=== PATIENT | female | born 1975 | race Caucasian/White ===

== ENCOUNTER → 2023-08-16 14:30 | Outpatient (REF) | payer OTHER, SELFPAY | LOC: HWWDC 14:30 | PROVIDERS: ATTENDING PHYSICIAN Obstetrics & Gynecology Gynecology | DX: Z12.31 Encounter for screening mammogram for malignant neoplasm of breast (principal) | CPT/HCPCS: 77063; 77067 ==

== ENCOUNTER 2023-10-31 13:02 | Outpatient (RCR) | payer OTHER, SELFPAY | END 2023-10-31 23:59 | disposition home or self-care (01) | LOC: RPT 13:02 | PROVIDERS: ATTENDING PHYSICIAN Obstetrics & Gynecology Gynecology | DX: N81.10 Cystocele, unspecified (principal); Z73.6 Limitation of activities due to disability | CPT/HCPCS: 97110; 97161; 97530 ==

== ENCOUNTER 2023-11-16 09:05 | Outpatient (RCR) | payer OTHER, SELFPAY | END 2023-11-16 23:59 | disposition home or self-care (01) | LOC: RPT 09:05 | PROVIDERS: ATTENDING PHYSICIAN Obstetrics & Gynecology Gynecology | DX: N81.10 Cystocele, unspecified (principal) | CPT/HCPCS: 97110; 97112 ==

== ENCOUNTER 2023-12-05 11:07 | Outpatient (RCR) | payer OTHER, SELFPAY | END 2023-12-05 23:59 | disposition home or self-care (01) | LOC: RPT 11:07 | PROVIDERS: ATTENDING PHYSICIAN Obstetrics & Gynecology Gynecology | DX: N81.10 Cystocele, unspecified (principal); Z73.6 Limitation of activities due to disability; M62.81 Muscle weakness (generalized); M54.30 Sciatica, unspecified side | CPT/HCPCS: 97110; 97112 ==

== ENCOUNTER 2024-01-09 09:13 | Outpatient (RCR) | payer OTHER, SELFPAY | END 2024-01-09 23:59 | disposition home or self-care (01) | LOC: RPT 09:13 | PROVIDERS: ATTENDING PHYSICIAN Obstetrics & Gynecology Gynecology | DX: N81.10 Cystocele, unspecified (principal); Z73.6 Limitation of activities due to disability | CPT/HCPCS: 97110; 97112 ==

== ENCOUNTER 2024-02-18 11:06 | Outpatient (RCR) | payer OTHER, SELFPAY | END 2024-02-18 23:59 | disposition home or self-care (01) | LOC: RPT 11:06 | PROVIDERS: ATTENDING PHYSICIAN Obstetrics & Gynecology Gynecology | DX: N81.10 Cystocele, unspecified (principal); Z73.6 Limitation of activities due to disability | CPT/HCPCS: 97110; 97112 ==

== ENCOUNTER → 2024-10-01 09:15 | Outpatient (REF) | payer OTHER, SELFPAY | LOC: HWWDC 09:15 | PROVIDERS: ATTENDING PHYSICIAN Obstetrics & Gynecology Gynecology | DX: Z12.31 Encounter for screening mammogram for malignant neoplasm of breast (principal) | CPT/HCPCS: 77063; 77067 ==